=== PATIENT | male | born 1965 | race Caucasian/White ===

== ENCOUNTER 2025-02-16 18:50 | Emergency (ER) | payer OTHER, SELFPAY ==
[2025-02-16 18:52] VITALS: BP 163/115; PULSE 88; RESP 20; TEMP 36.7; O2SAT 98; BMI 23.3
--- NOTE | 2025-02-16 18:53 | ED_ITS ---
Discharge Plan Disposition Chief Complaint: Psychiatric Symptoms Referrals Follow up/Referrals: Provider,Referral, MD [Primary Care Provider] - See instructions Clinical Impressions Clinical Impression: Alcohol intoxication Qualifiers: Complication of substance-induced condition: uncomplicated Qualified Code(s): F 10.920 - Alcohol use, unspecified with intoxication, uncomplicated Stand Alone Forms Stand Alone Forms: Work/School Release Print Language Print Language: Malay Discharge ED Provider: Thaddeus Marmolejo General Adult HPI General Chief complaint: Psychiatric Symptoms Stated complaint: nervous breakdown Time Seen by Provider: 02/16/25 18:52 Mode of Arrival: EMS Source of Information: Patient and EMS Limitations: intoxicated History of Present Illness HPI narrative: This is a 59-year-old male with a past medical history of bipolar disorder not currently taking any medications who presents by EMS with multiple complaints. He was found outside of an apartment complex wandering on the street. Police were involved. Ultimately, patient progressed to having a nervous breakdown and EMS was called for transport to the emergency department. Reports that patient has been drinking alcohol today. Patient reports taking 5 shots in a 24 ounce of beer. States that he has had a lot going on in his life and a lot is coming to the surface right now. Denies any suicidal or homicidal ideation. States that he has a 9-year-old son that he has not been able to see. States that he needs help. Related Data Allergies Allergy/AdvReac Type Severity Reaction Status Date / Time No Known Allergies Allergy Verified 02/16/25 19:26 [facility] Disclaimer: The information contained in this section may have been updated after the patient was seen, as this information can be updated by other users. Social History Smoking Status: Never smoker alcohol intake: current current occupational status: unemployed Travel in the last 8 weeks?: None ROS Obtained: Yes All systems reviewed & no additional complaints except as documented Physical Exam General General appearance: alert and appears intoxicated Head Head exam: atraumatic Eye Eye exam: Present normal appearance, PERRL and EOMI Neck Neck exam: Present normal inspection and full ROM Chest Chest inspection: Present symmetric chest wall rise Respiratory Respiratory exam: Present normal lung sounds bilaterally; Absent respiratory distress Cardiovascular Cardiovascular exam: Present regular rate and normal rhythm Abdominal Exam Abdominal exam: Present soft; Absent distention Extremities Exam Extremities exam: Present other (RUE: Old healing laceration to the dorsum of his left hand) Neurological Exam Neurological exam: Present alert and oriented X3 Psychiatric Psychiatric exam: Present other (Labile affect. Tearful. Intoxicated.); Absent agitated, manic, homicidal ideation or suicidal ideation Skin Skin exam: Present warm and dry Medical Decision Making Medical Records Medical records reviewed: Yes I reviewed the patient's medical records. Screening: Per USPSTF and CDC recommendations, given the prevalence of disease in our region, it is our hospital?s policy to screen for HIV and viral Hepatitis for all patients aged 18 and over and those with ongoing risk factors. [place] Inquiry Pt receiving controlled substance: No Vital Signs: 02/16/25 18:52 02/16/25 20:45 02/16/25 21:23 Temperature 98.1 F Temperature Source Oral Pulse Rate 83 82 Pulse Rate [Right] 88 Respiratory Rate 20 Blood Pressure 126/86 131/80 Blood Pressure [Right Arm] 163/115 H Blood Pressure Mean [Right Arm] 131 02 Sat by Pulse Oximetry 98 97 96 Oxygen Delivery Method Room Air Room Air 02/16/25 21:24 Temperature Temperature Source Pulse Rate 84 Pulse Rate [Right] Respiratory Rate Blood Pressure 127/96 H Blood Pressure [Right Arm] Blood Pressure Mean [Right Arm] 02 Sat by Pulse Oximetry 96 Oxygen Delivery Method Lab Data Lab Results 02/16/25 20:56: WBC 6.4, RBC 4.74, Hgb 14.9, Hct 44.6, MCV 94.1 H, MCH 31.4 H, MCHC 33.4, RDW 13.8, Plt Count 249, MPV 9.0, Neut % (Auto) 50.7, Lymph % (Auto) 38.1, Frederick % (Auto) 8.4, Eos % (Auto) 1.6, Baso % (Auto) 0.9, Neut # (Auto) 3.2, Lymph # (Auto) 2.4, Frederick # (Auto) 0.5, Eos # (Auto) 0.1, Baso # (Auto) 0.1, Sodium 145, Potassium 3.1 L, Chloride 107, Carbon Dioxide 30, Anion Gap 11.1, BUN 10, Creatinine 0.70, Estimated Creat Clear 103, Estimated GFR 116, Est GFR ( Amer) 140, Glucose 113 H, Calcium 9.6, Total Bilirubin 0.4, AST 45, ALT 24, Alkaline Phosphatase 106, Total Protein 7.5, Albumin 4.7, Globulin 2.8, Albumin/Globulin Ratio 1.7, Plasma/Serum Alcohol 287 H 02/16/25 20:56 02/16/25 20:56 Orders (Tests/Meds): ED MEDICATIONS Discontinued Medications Generic Name Dose Route Start Last Admin Trade Name Ira PRN Reason Stop Dose Admin Clonazepam 1 mg 02/16/25 19:25 02/16/25 19:31 Clonazepam 0.5mg Tablet PO 02/16/25 19:26 1 mg ONCE ONE Administration Lactated Ringer's 1,000 mls @ 999 mls/hr 02/16/25 18:52 02/16/25 21:00 Lactated Ringer's 1000 Ml Bag IV 02/16/25 19:52 999 mls/hr .Q1H1M ONE Administration Potassium Chloride 40 meq 02/16/25 22:54 Potassium Chloride 20meq Tab PO 02/16/25 22:55 ONCE ONE ORDERS Category Date Time Status Blood alcohol [Ethyl Alcohol] Stat Lab 02/16/25 20:56 Completed CBC w/Auto Diff [Complete Blood Count Auto Diff] Stat Lab 02/16/25 20:56 Completed CMP [Comprehensive Metabolic Panel] Stat Lab 02/16/25 20:56 Completed Medical Decision Narrative: In summary, this 59-year-old male with a past medical history of bipolar disorder not currently on any medication presents to the emergency department today with multiple complaints including nervous breakdown and alcohol intoxication. On initial evaluation patient is afebrile, hemodynamically stable, nontoxic-appearing, clearly intoxicated. Differential diagnosis includes but is not limited to alcohol intoxication, anxiety, bipolar disorder. Based on these concerns, I ordered CBC, CMP, alcohol level. Ordered 1 L of lactated Ringer's for treatment. Patient declined laboratory workup and fluids. He got up out of his bed and tried to leave the emergency department several times. He was able to be redirected back to his room. Offered food, drink, socks. He was requesting his Klonopin which he used to take for his bipolar disorder in the past. He was felt to be a danger to himself and others at this time as he was still significantly intoxicated. Was redirectable at this time. Did administer the patient 1 mg of oral Klonopin. He was much more cooperative after this. Deferred laboratory workup and IV fluids at this time. Clinical presentation is consistent with alcohol intoxication. Patient needs time to metabolize and labs and fluids are not necessary. Patient became more cooperative after being administered Klonopin. IV was obtained and labs were sent. Unremarkable CBC, unremarkable CMP with the exception of mild hypokalemia at 3.1 which was repleted orally. Alcohol level of 287. At the time of shift change, patient was resting comfortably. Care was handed off to Dr. Yuen pending metabolization and reassessment. See dispo below. Critical Care Critical Care Time Critical Care Time: No
--- NOTE | 2025-02-16 19:24 | PC.NURSE ---
Patient refuses IV; states he is leaving; states his mom can't come and get him because she is [address]; notified
[2025-02-16] MEDS: clonazePAM 0.5MG TABLET 1 MG PO (19:31)
--- NOTE | 2025-02-16 19:38 | PC.NURSE ---
Pt is very intoxicated. He keeps trying to leave. Pt is refusing an IV at this time. This RN, Bria CRUZ, and Dr. Marmolejo have all tried speaking with him and explaining the situation. This RN called House and requested a sitter for a bit. At this time, a sitter is w/ him
[2025-02-16 20:45] VITALS: BP 126/86; PULSE 83; O2SAT 97
[2025-02-16 21:00] LABS: Basophils # 0.1 K/mm3 (0-0.2); Basophils % 0.9 % (0.1-2.0); Eosinophils # 0.1 Kmm3 (0.0-0.4); Eosinophils % 1.6 % (0.1-12.0); Hematocrit 44.6 % (42.0-52.0); Hemoglobin 14.9 g/dL (14.1-18.0); Lymphocytes # 2.4 K/mm3 (0.7-4.5); Lymphocytes % 38.1 % (10-50); Mean Corpuscular HGB Conc 33.4 g/dL (31.8-35.4); Mean Corpuscular Hemoglobin 31.4 pg (27.0-31.2); Mean Corpuscular Volume 94.1 fl (80-94); Monocytes # 0.5 K/mm3 (0.1-1.0); Monocytes % 8.4 % (1.7-9.3); Neutrophils # 3.2 K/mm3 (1.8-7.8); Neutrophils % 50.7 % (37.0-80.0); Nucleated Red Blood Cells # 0 10^3/uL; Nucleated Red Blood Cells % 0 %; Platelet Count 249 K/mm3 (142-424); Red Blood Count 4.74 M/mm3 (4.60-6.20); Red Cell Distribution Width 13.8 % (11.5-17.5); Red Cell Distribution Width-SD 47.9 fL; White Blood Count 6.4 K/mm3 (4.8-10.8)
[2025-02-16] MEDS: LACTATED RINGERS 1000ML 1,000 ML 999 ML IV (21:00)
[2025-02-16 21:07] LABS: Albumin Level 4.7 g/dl (3.5-5.0); Chloride 107 mmol/L (98-107); Potassium 3.1 mmoL/L (3.5-5.1); Sodium 145 mmol/L (136-145)
[2025-02-16 21:10] LABS: Alanine Aminotransferase 24 U/L (12-78); Albumin/Globulin Ratio 1.7 (1.1-1.8); Alkaline Phosphatase 106 U/L (38-126); Anion Gap 11.1 mEq/L (5-15); Aspartate Amino Transferase 45 U/L (17-59); Bilirubin,Total 0.4 mg/dl (0.2-1.3); Blood Urea Nitrogen 10 mg/dl (9-20); Carbon Dioxide 30 mmol/L (22.0-30.0); Creatinine Clearance Estimated 103 mL/min (50-200); Estimated Glomerular Filt Rate 116 ml/min (>60); GFR (African American) 140 ML/MIN (>60); Globulin 2.8 g/dL (1.3-3.2); Total Protein,Serum 7.5 g/dl (6.3-8.2)
[2025-02-16 21:11] LABS: Calcium 9.6 mg/dl (8.4-10.2); Glucose 113 mg/dl (74-100)
[2025-02-16 21:12] LABS: Ethyl Alcohol 287 mg/dl (0-10)
--- NOTE | 2025-02-16 21:19 | PC.NURSE ---
Patient refuses to wear monitoring equipment; risks explained.
[2025-02-16 21:23] VITALS: BP 131/80; PULSE 82; O2SAT 96
[2025-02-16 21:24] VITALS: BP 127/96; PULSE 84; O2SAT 96
[2025-02-16] MEDS: POTASSIUM CHLORIDE 20MEQ TAB 40 MEQ PO (23:24)
[2025-02-17 01:47] VITALS: BP 120/72; PULSE 74; RESP 16; TEMP 36.6; O2SAT 98
== END 2025-02-17 01:48 | disposition home or self-care (01) ==
PROVIDERS: Emergency Provider Student in an Organized Health Care Education/Training Program
DX: F10.920 Alcohol use, unspecified with intoxication, uncomplicated (principal); E87.6 Hypokalemia
CPT/HCPCS: 80053; 80320; 85025; 96360; 99285; J7120

== ENCOUNTER 2025-04-11 22:50 | Emergency (ER) | payer OTHER, SELFPAY ==
--- OUTSIDE RECORDS SUMMARY | 2017-10-03 08:30 | XMS_ITS | Continuity of Care Document ---
Author Organization [facility] Address [address] [place] [address] [place] [address] Phone Care Team Providers Care Shearer Helper Name Role Phone Provider, [facility] Unavailable Unavailable Advance Directives Directive Yes / No Effective Date File Name No Information Encounters Encounter Description Practice Location Reason(s) For Visit Diagnoses Date Provider Providers Copied on Encounter [facility], [address] [place], [place], [id number] tel:[phone] [facility] No Information Provider [facility]. [address] [place], [place], [id number]. tel:[phone] Family History Family Member Type Diagnosis Age At Onset No Information Payers Payer name Insurance type Covered republican ID Authoriza tion(s) No Information Social History Type Description Quantity Date Captured Comments Sex Male Smoking Status No Information History Of Present Illness Encounter Date Complaint History Of Prese nt Illness No Information Functional Status Date Functional Assessmen t No Information Instructions Date Instruction Additional Infor mation No Information Assessments Type Assessment Date No Information Patient Care Teams Name Effective Dates (start - stop) Status Members No Information
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
[2025-04-11 23:21] VITALS: BP 169/118; PULSE 93; RESP 16; TEMP 37.2; O2SAT 96; BMI 21.6
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
--- NOTE | 2025-04-11 23:21 | CT_ITS ---
PROCEDURE INFORMATION: Exam: CTA Abdomen and Pelvis With Contrast Exam date and time: 04/12/2025 12:29 AM Age: 59 years old Clinical indication: Injury or trauma; Additional info: Trauma, critical injury suspected TECHNIQUE: Imaging protocol: Computed tomographic angiography of the abdomen and pelvis with contrast. Exam focused on the arteries. 3D rendering (Not supervised by radiologist): MIP and/or 3D reconstructed images were created by the technologist. Radiation optimization: All CT scans at this facility use at least one of these dose optimization techniques: automated exposure control; mA and/or kV adjustment per patient size (includes targeted exams where dose is matched to clinical indication); or iterative reconstruction. Contrast material: ISOVUE; Contrast volume: 80 ml; Contrast route: INTRAVENOUS (IV); COMPARISON: CT LUMBAR SPINE WO CON 04/12/2025 12:16 AM FINDINGS: Aorta: Moderate atherosclerotic calcification throughout the abdominal aorta. No evidence of aneurysm, dissection or acute aortic injury. Celiac trunk and mesenteric arteries: No occlusion or significant stenosis. Renal arteries: No occlusion or significant stenosis. Right iliac arteries: No occlusion or significant stenosis. Left iliac arteries: No occlusion or significant stenosis. Liver: No mass. Gallbladder and biliary ducts: Unremarkable. No calcified stones. No ductal dilation. Pancreas: Unremarkable. No mass. No ductal dilation. Spleen: Unremarkable. No splenomegaly. Adrenal glands: Unremarkable. No mass. Kidneys and ureters: Unremarkable. No solid mass. No hydronephrosis. Stomach and bowel: Moderate diverticulosis throughout the distal colon and mild diverticulosis in the proximal colon. No bowel wall thickening or evidence of bowel obstruction. There is moderate wall thickening throughout the distal sigmoid colon raising suspicion 5 active or previously treated diverticulitis or colitis. Appendix: The appendix is visualized and appears normal. Intraperitoneal space: Unremarkable. No free air. No significant fluid collection. Lymph nodes: Unremarkable. No enlarged lymph nodes. Urinary bladder: Unremarkable. No mass. Reproductive: Coarse prostate gland calcifications are noted. Bones/joints: No acute fracture. Soft tissues: Unremarkable. IMPRESSION: 1. No acute posttraumatic changes evident. 2. Distal colonic diverticulosis with moderate wall thickening throughout the distal sigmoid suggesting either mild active or previously treated diverticulitis or colitis. No free air, free fluid or other findings to suggest acute bowel injury.
[2025-04-11] MEDS: LORazepam 2MG/ML VIAL 2 MG IV (23:33)
[2025-04-11] MEDS: LACTATED RINGERS 1000ML 1,000 ML 999 ML IV (23:33)
[2025-04-11] MEDS: TET/DIPHTH/PERT-ADULT 0.5ML SYRINGE 0.5 ML IM (23:33)
[2025-04-11 23:34] LABS: Basophils # 0.1 K/mm3 (0-0.2); Basophils % 0.8 % (0.1-2.0); Eosinophils # 0.1 Kmm3 (0.0-0.4); Eosinophils % 1.3 % (0.1-12.0); Hemoglobin 14.6 g/dL (14.1-18.0); Immature Granulocytes # 0.02 10^3uL; Immature Granulocytes % 0.2 %; Lymphocytes # 3.4 K/mm3 (0.7-4.5); Lymphocytes % 40.4 % (10-50); Mean Corpuscular HGB Conc 33.2 g/dL (31.8-35.4); Mean Corpuscular Hemoglobin 31.4 pg (27.0-31.2); Mean Corpuscular Volume 94.6 fl (80-94); Mean Platelet Volume 9.8 fl (7.4-10.4); Monocytes # 0.8 K/mm3 (0.1-1.0); Monocytes % 9.7 % (1.7-9.3); Neutrophils # 3.9 K/mm3 (1.8-7.8); Neutrophils % 47.6 % (37.0-80.0); Nucleated Red Blood Cells # 0 10^3/uL; Nucleated Red Blood Cells % 0 %; Platelet Count 233 K/mm3 (142-424); Red Blood Count 4.65 M/mm3 (4.60-6.20); Red Cell Distribution Width 13.2 % (11.5-17.5); Red Cell Distribution Width-SD 46.1 fL; White Blood Count 8.3 K/mm3 (4.8-10.8)
[2025-04-11 23:43] LABS: Alanine Aminotransferase 18 U/L (12-78); Albumin Level 4.5 g/dl (3.5-5.0); Albumin/Globulin Ratio 1.4 (1.1-1.8); Alkaline Phosphatase 83 U/L (38-126); Anion Gap 11.4 mEq/L (5-15); Aspartate Amino Transferase 43 U/L (17-59); Bilirubin,Total 0.6 mg/dl (0.2-1.3); Blood Urea Nitrogen 8 mg/dl (9-20); Calcium 9.5 mg/dl (8.4-10.2); Carbon Dioxide 28 mmol/L (22.0-30.0); Chloride 109 mmol/L (98-107); Estimated Glomerular Filt Rate 99 ml/min (>60); GFR (African American) 120 ML/MIN (>60); Globulin 3.3 g/dL (1.3-3.2); Glucose 113 mg/dl (74-100); Lipase 72 U/L (23-300); Potassium 3.4 mmoL/L (3.5-5.1); Sodium 145 mmol/L (136-145); Total Protein,Serum 7.8 g/dl (6.3-8.2)
[2025-04-11 23:45] LABS: Activated Partial Thrombo Time 28.9 seconds (22.8-30.6); INR 0.94 (0.9-1.1); Prothrombin Time 10.5 seconds (10.1-12.5)
--- NOTE | 2025-04-12 00:02 | PC.NURSE ---
pt taken to ct scan at this time
[2025-04-12] MEDS: IOPAMIDOL-370 (76%);100ML BOTTLE 160 ML IV (00:24)
[2025-04-12] MEDS: 0.9 % SODIUM CHLORIDE 50 ML VIAL IV (00:24)
--- NOTE | 2025-04-12 00:41 | PC.NURSE ---
pt returned from radiology without incident.
[2025-04-12 00:58] LABS: Microscopic, Urine URINE MICROSCOPIC (MICROSCOPIC)
[2025-04-12 01:01] VITALS: BP 109/58; PULSE 59; RESP 14; O2SAT 96
[2025-04-12 01:02] LABS: Appearance,Urine CLEAR (Clear); Bilirubin,Urine Negative (Negative); Blood, Urine Negative (Negative); Color,Urine YELLOW (Yellow); Glucose,Urine (UA) Negative (Negative); Ketones,Urine Negative (Negative); Leukocyte Esterase,Urine 1+ (Negative); Nitrate,Urine Negative (Negative); Protein,Urine Negative (Negative); Specific Gravity, Urine <= 1.005 (1.005-1.030); Urobilinogen,Urine 0.2 EU/dl (0.2)
[2025-04-12 01:21] LABS: Amphetamine/Metha Screen,Urine Negative ng/ml (<1000); Benzodiazepines Screen,Urine Negative ng/ml (<200)
[2025-04-12 01:22] LABS: Cannabinoid Screen,Urine Positive ng/ml (<50)
[2025-04-12 01:23] LABS: Cocaine Screen,Urine Negative ng/ml (<300); Methadone Screen,Urine Negative ng/ml (<300)
[2025-04-12 01:24] LABS: Opiate Screen,Urine Negative ng/ml (<300)
[2025-04-12 01:25] LABS: Phencyclidine Screen,Urine Negative ng/ml (<25)
[2025-04-12 01:29] LABS: Barbiturates Screen,Urine Negative ng/ml (<200)
[2025-04-12 01:30] VITALS: BP 106/65; PULSE 54; O2SAT 95
--- NOTE | 2025-04-12 01:53 | PC.NURSE ---
pt given food upon request.
[2025-04-12 02:02] VITALS: PULSE 71; O2SAT 100
[2025-04-12 02:17] LABS: Bacteria,Urine 4+ /lpf
[2025-04-12 03:11] LABS: HIV Combo NEGATIVE (Negative)
[2025-04-12 03:19] LABS: Hepatitis C Ab Qual. W/ RFX NEGATIVE (Negative)
--- NOTE | 2025-04-12 05:09 | PC.NURSE ---
pt awake and walking around room, speaking clearly. Made aware that we would be able to get him transportation back to [place] around 0800, breakfast tray to be ordered for patient, Placed back in bed and given warm blanket.
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
--- NOTE | 2025-04-12 08:26 | PC.NURSE ---
Called the [facility] for possible transport home, following MD BECKMAN.
--- NOTE | 2025-04-12 08:29 | PC.NURSE ---
spoke with Kylie for the [employer] transportation. stated they would be here about 1030 to pick him up
[2025-04-12 10:25] VITALS: BP 122/77; PULSE 96; RESP 15; TEMP 36.6; O2SAT 97
--- NOTE | 2025-04-14 13:34 | PC.NURSE ---
I attempted to call the pt about his urine results and that sent an antibiotic. His saved phone number on the chart belonged to someone else. They will give him a message to call back.
--- NOTE | 2025-04-14 14:19 | PC.NURSE ---
The pt returned my call. I relayed his prelim urine culture results. I informed him that sent him in an antibiotic to his pharmacy.
== END 2025-04-12 10:45 | disposition home or self-care (01) ==
PROVIDERS: Emergency Medicine; Emergency Provider Student in an Organized Health Care Education/Training Program
DX: S09.90XA Unspecified injury of head, initial encounter (principal); F10.129 Alcohol abuse with intoxication, unspecified; F17.210 Nicotine dependence, cigarettes, uncomplicated; V29.91XA Electric (assisted) bicycle rider (driver) (passenger) injured in unspecified traffic accident, initial encounter; Z23 Encounter for immunization
CPT/HCPCS: 70450; 70496; 70498; 71275; 72125; 72128; 72131; 74174; 80053; 80307; 81001; 83690; 85025; 85610; 85730; 86803; 87086; 87088; 87186; 87389; 90471; 90715; 96361; 96374; 99285; J2060; J7120; Q9967

== ENCOUNTER 2025-09-07 11:43 | Inpatient (IN) | payer OTHER, SELFPAY ==
[2025-09-07] VITALS (10 sets, daily range): BP systolic 109–158; BP diastolic 69–92; PULSE 90–111; RESP 14–17; TEMP 36.8–37.2; O2SAT 95–100; BMI 21.6; BMI 21.4
--- NOTE | 2025-09-07 12:05 | XR_ITS ---
FINAL REPORT TECHNIQUE: Single view chest CLINICAL HISTORY: trauma FINDINGS: A single view of the chest was obtained. The heart and mediastinum are within normal limits. The lungs are clear. There is no pneumothorax. IMPRESSION: No acute cardiopulmonary process. Reviewed, Interpreted and Dictated by Cristian Garcia MD Transcribed by Trina Landon Authenticated and [facility]
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
--- NOTE | 2025-09-07 12:05 | XR_ITS ---
FINAL REPORT CLINICAL HISTORY: trauma FINDINGS: SINGLE VIEW PELVIS: A single view of the pelvis was obtained. There is no acute fracture or dislocation. Vizualized joint spaces are normally aligned. Soft tissues are unremarkable. IMPRESSION: No acute bony abnormality. Reviewed, Interpreted and Dictated by Cristian Garcia MD Transcribed by Trina Landon Authenticated and [facility]
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
--- NOTE | 2025-09-07 12:11 | ECG_ITS ---
APPROVED REPORT Exam: Resting ECG HR:111 bpm ECG Measurements Heart Rate 111 AXES MT 144 P 74 QRSd 93 QRS 37 QT 321 T 71 QTc 386 Conclusion SINUS TACHYCARDIA ABNORMAL RHYTHM ECG UNCONFIRMED REPORT Electronically signed by : William Jameson, 09/07/2025 15:00:00
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
[2025-09-07 12:19] LABS: Hematocrit 33.3 % (42.0-52.0); Hemoglobin 12.0 g/dL (14.1-18.0); Immature Granulocytes % 1.1 %; Mean Corpuscular HGB Conc 36.0 g/dL (31.8-35.4); Mean Corpuscular Hemoglobin 31.3 pg (27.0-31.2); Mean Corpuscular Volume 86.9 fl (80-94); Nucleated Red Blood Cells % 0 %; Platelet Count 95 K/mm3 (142-424); Red Blood Count 3.83 M/mm3 (4.60-6.20); Red Cell Distribution Width-SD 36.8 fL; White Blood Count 12.3 K/mm3 (4.8-10.8)
[2025-09-07 12:33] LABS: Alanine Aminotransferase 34 U/L (12-78); Albumin Level 3.6 g/dl (3.5-5.0); Albumin/Globulin Ratio 1.4 (1.1-1.8); Alkaline Phosphatase 87 U/L (38-126); Anion Gap 10.1 mEq/L (5-15); Aspartate Amino Transferase 106 U/L (17-59); Bilirubin,Total 1.0 mg/dl (0.2-1.3); Blood Urea Nitrogen 18 mg/dl (9-20); Calcium 8.3 mg/dl (8.4-10.2); Carbon Dioxide 22 mmol/L (22.0-30.0); Chloride 87 mmol/L (98-107); Creatinine Clearance Estimated 48 mL/min (50-200); Creatinine,Serum 1.40 mg/dl (0.66-1.25); Estimated Glomerular Filt Rate 52 ml/min (>60); GFR (African American) 63 ML/MIN (>60); Globulin 2.6 g/dL (1.3-3.2); Glucose 103 mg/dl (74-100); Magnesium 1.9 mg/dl (1.6-2.3); Potassium 3.1 mmoL/L (3.5-5.1); Sodium 116 mmol/L (136-145); Total Protein,Serum 6.2 g/dl (6.3-8.2)
[2025-09-07] MEDS: LACTATED RINGERS 1000ML 1,000 ML 999 ML IV (12:42)
[2025-09-07] MEDS: diazePAM 10MG/2ML SYRINGE 2 MG IV (12:42)
[2025-09-07 12:45] LABS: Troponin I 0.01 ng/ml (0.00-0.034)
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
[2025-09-07 13:00] LABS: Total Cells Counted 100
[2025-09-07 13:01] LABS: RBC Morphology Normal
[2025-09-07] MEDS: POTASSIUM CHLORIDE 20MEQ TAB 40 MEQ PO (13:06)
--- NOTE | 2025-09-07 13:18 | PC.NURSE ---
repair department supervisor contacted for bed
[2025-09-07 13:22] LABS: Amphetamine/Metha Screen,Urine Negative ng/ml (<1000)
[2025-09-07 13:23] LABS: Barbiturates Screen,Urine Negative ng/ml (<200); Benzodiazepines Screen,Urine Positive ng/ml (<200)
[2025-09-07 13:25] LABS: Methadone Screen,Urine Negative ng/ml (<300)
[2025-09-07 13:26] LABS: Opiate Screen,Urine Negative ng/ml (<300); Phencyclidine Screen,Urine Negative ng/ml (<25)
--- NOTE | 2025-09-07 14:26 | HMH.PHAINT1 ---
Pharmacy Intervention Comments: MEDICATION RECONCILIATION COMPLETED ON PATIENT USING EXTERNAL FILL HISTORY FROM PHARMACY. -EVY GIVENS, ROSANNED
--- NOTE | 2025-09-07 15:00 | PC.NURSE ---
arrived by stretcher from ED
[2025-09-07 16:02] LABS: Anion Gap 7.9 mEq/L (5-15); Blood Urea Nitrogen 17 mg/dl (9-20); Calcium 8.3 mg/dl (8.4-10.2); Carbon Dioxide 24 mmol/L (22.0-30.0); Chloride 89 mmol/L (98-107); Creatinine Clearance Estimated 61 mL/min (50-200); Creatinine,Serum 1.10 mg/dl (0.66-1.25); Estimated Glomerular Filt Rate 69 ml/min (>60); GFR (African American) 83 ML/MIN (>60); Glucose 96 mg/dl (74-100); Sodium 118 mmol/L (136-145)
[2025-09-07 16:04] LABS: Potassium 2.9 mmoL/L (3.5-5.1)
[2025-09-07 16:14] LABS: Troponin I 0.03 ng/ml (0.00-0.034)
--- NOTE | 2025-09-07 17:28 | PC.NURSE ---
Hospitalist notified of critical potassium of 2.9 at 1608. no new orders at this time.
[2025-09-07 17:57] LABS: Sodium,Urine Random 19.0 mmol/L (30-90)
[2025-09-07] MEDS: 0.9 % SODIUM CHLORIDE 1000ML 1,000 ML 75 ML IV (18:17)
[2025-09-07 18:57] LABS: Troponin I 0.02 ng/ml (0.00-0.034)
[2025-09-07] MEDS: PANTOPRAZOLE 40MG TABLET 40 MG PO (20:30)
[2025-09-08] VITALS (7 sets, daily range): BP systolic 97–150; BP diastolic 70–95; PULSE 70–105; RESP 12–18; TEMP 36.3–39.1; O2SAT 95–100; BMI 21.2
[2025-09-08] MEDS: ACETAMINOPHEN 325MG TAB 650 MG PO (00:20)
[2025-09-08 00:41] LABS: Chloride 92 mmol/L (98-107); Potassium 3.8 mmoL/L (3.5-5.1); Sodium 124 mmol/L (136-145)
[2025-09-08 00:44] LABS: Anion Gap 13.8 mEq/L (5-15); Blood Urea Nitrogen 15 mg/dl (9-20); Calcium 7.9 mg/dl (8.4-10.2); Carbon Dioxide 22 mmol/L (22.0-30.0); Creatinine Clearance Estimated 61 mL/min (50-200); Creatinine,Serum 1.10 mg/dl (0.66-1.25); Estimated Glomerular Filt Rate 69 ml/min (>60); GFR (African American) 83 ML/MIN (>60); Glucose 83 mg/dl (74-100)
--- NOTE | 2025-09-08 01:41 | PC.NURSE ---
Pt AOx4. Tolerating room air. CIWA score 0. NPO per provider order. Denies pain or any additional needs. Resting in low, locked bed with call light is in reach. Respirations even and unlabored.
--- NOTE | 2025-09-08 06:00 | US_ITS ---
FINAL REPORT TECHNIQUE: Sonographic images of the right upper quadrant were obtained. CLINICAL HISTORY: RUQ tenderness, nausea/vomiting FINDINGS: PANCREAS: Unremarkable. LIVER: Homogeneous. No focal hepatic lesion. No intrahepatic biliary ductal dilatation. GALLBLADDER: No gallstones. No gallbladder wall thickening or pericholecystic fluid. COMMON DUCT: 7 mm. Dilated for age. RIGHT KIDNEY: The right kidney measures 11.2 cm. There is no hydronephrosis, mass, or stone. FREE FLUID: None. IMPRESSION: Mild common duct dilatation, otherwise unremarkable exam. Reviewed, Interpreted and Dictated by Mahi Cosme MD Transcribed by Trina Landon Authenticated and [facility]
[2025-09-08 06:16] LABS: Hematocrit 34.9 % (42.0-52.0); Hemoglobin 11.9 g/dL (14.1-18.0); Immature Granulocytes % 0.8 %; Mean Corpuscular HGB Conc 34.1 g/dL (31.8-35.4); Mean Corpuscular Hemoglobin 30.5 pg (27.0-31.2); Mean Corpuscular Volume 89.5 fl (80-94); Nucleated Red Blood Cells % 0 %; Platelet Count 103 K/mm3 (142-424); Red Blood Count 3.90 M/mm3 (4.60-6.20); Red Cell Distribution Width-SD 38.7 fL; White Blood Count 9.9 K/mm3 (4.8-10.8)
[2025-09-08 06:25] LABS: INR 0.94 (0.9-1.1); Prothrombin Time 10.5 seconds (10.1-12.5)
[2025-09-08 06:27] LABS: Alanine Aminotransferase 42 U/L (12-78); Albumin Level 3.3 g/dl (3.5-5.0); Albumin/Globulin Ratio 1.3 (1.1-1.8); Alkaline Phosphatase 71 U/L (38-126); Anion Gap 6.7 mEq/L (5-15); Aspartate Amino Transferase 194 U/L (17-59); Bilirubin,Total 0.7 mg/dl (0.2-1.3); Blood Urea Nitrogen 16 mg/dl (9-20); Calcium 8.6 mg/dl (8.4-10.2); Carbon Dioxide 27 mmol/L (22.0-30.0); Chloride 93 mmol/L (98-107); Creatinine Clearance Estimated 60 mL/min (50-200); Creatinine,Serum 1.10 mg/dl (0.66-1.25); Estimated Glomerular Filt Rate 69 ml/min (>60); GFR (African American) 83 ML/MIN (>60); Globulin 2.5 g/dL (1.3-3.2); Glucose 88 mg/dl (74-100); Magnesium 2.2 mg/dl (1.6-2.3); Potassium 3.7 mmoL/L (3.5-5.1); Sodium 123 mmol/L (136-145); Total Protein,Serum 5.8 g/dl (6.3-8.2)
[2025-09-08 06:54] LABS: Total Cells Counted 100
[2025-09-08 06:57] LABS: RBC Morphology Normal
--- NOTE | 2025-09-08 08:32 | SW/DCPLANNER ---
Addendum entered by Delfina Schmitz 09/08/25 10:29: Per PT/OT patient is safe to return home w/ home health services. Due to insurance not being in network w/ home health I will discuss outpatient PT services w/ patient. Original Note: I received a consult on this patient regarding possibly being homeless at time of discharge. Patient stated that he currently rents an apartment w/ his mother. Patient voiced that things are difficult w/ his mother in regards to splitting the rent and getting along. Patient stated that he has been actively searching for another apartment and has several applications in at places. Patient expressed that he does plan to return home w/ his mother due to it being his apartment. Patient and I did discuss homeless shelters if needed at time of discharge. Patient is not interested in homeless shelters at this time. I discussed w/ patient that Peer Support has been consulted and will speak w/ patient today. I will follow up w/ MD, patient and PS to assist w/ discharge planning. Patient will need a rolling walker at time of discharge and prefers to use [facility]. CM will continue to follow up.
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
[2025-09-08] MEDS: THIAMINE 100MG TABLET 100 MG PO (09:55)
[2025-09-08] MEDS: FOLIC ACID 1MG TABLET 1 MG PO (09:55)
--- NOTE | 2025-09-08 10:48 | MR_ITS ---
FINAL REPORT TECHNIQUE: Multiplanar multisequence imaging of the abdomen was obtained without contrast. MRCP images were obtained as well. CLINICAL HISTORY: Nausea/vomiting, RUQ pain, CBD dilatation on RUQ FINDINGS: The liver is homogeneous. There is no focal hepatic lesion. Gallbladder is present. There are no gallstones. Spleen is normal in size and signal intensity. Adrenal glands are unremarkable. There is no pancreatic mass or convincing evidence of pancreatitis. There are small bilateral renal cysts. There is no hydronephrosis. There is an abnormal appearance to the mid and lower pole of the right kidney. Kidney appears edematous with loss of corticomedullary differentiation. There is perinephric abnormal signal intensity on the right. Common duct is unremarkable. There is no filling defect or stricture. IMPRESSION: Abnormal appearance to the midportion and lower pole of the right kidney with edematous appearance and surrounding abnormal signal intensity which could represent infectious/inflammatory process. However, malignancy less likely but not excluded. Recommend correlation with contrast-enhanced CT (including delayed imaging) and correlation with urinalysis. Unremarkable appearance to the gallbladder and common duct. Reviewed, Interpreted and Dictated by Mahi Cosme MD Transcribed by Trina Landon Authenticated and [facility]
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
--- NOTE | 2025-09-08 11:41 | CARE MANAGER ---
Addendum entered by Amie Mason RN 09/10/25 09:32: Patient has improved greatly and will not require a walker. Original Note: Patient will Verbal consent given for any DME company. I plan to fax clinical and order on day of discharge to [facility] if he does not go to inpatient rehab.
[2025-09-08 13:27] LABS: Anion Gap 10.7 mEq/L (5-15); Blood Urea Nitrogen 17 mg/dl (9-20); Calcium 8.7 mg/dl (8.4-10.2); Carbon Dioxide 22 mmol/L (22.0-30.0); Chloride 92 mmol/L (98-107); Creatinine Clearance Estimated 66 mL/min (50-200); Creatinine,Serum 1.00 mg/dl (0.66-1.25); Estimated Glomerular Filt Rate 77 ml/min (>60); GFR (African American) 93 ML/MIN (>60); Glucose 80 mg/dl (74-100); Potassium 3.7 mmoL/L (3.5-5.1); Sodium 121 mmol/L (136-145)
[2025-09-08] MEDS: SODIUM CHLORIDE 1,000MG TABLET 1000 MG PO ×2 (15:32→20:32)
[2025-09-08 16:40] LABS: C-Reactive Protein 313.8 mg/L (0-4)
[2025-09-08] MEDS: NICOTINE 21MG/24HR PATCH 21 MG TD (16:40)
[2025-09-08] MEDS: MULTIVITAMIN TABLET 1 EACH PO (16:41)
[2025-09-08 16:51] LABS: Procalcitonin 10.1 ng/mL (0.0-2.0)
[2025-09-08 16:55] LABS: Adenovirus,PCR Not Detected (NotDetected); Chlamydophila Pneumoniae, PCR Not Detected (NotDetected); Coronavirus 19, PCR Not Detected (NotDetected); Coronovirus HKU1,PCR Not Detected (NotDetected); Influenza A, PCR Not Detected (NotDetected); Influenza AH1, 2009 Not Detected (NotDetected); Influenza AH1, PCR Not Detected (NotDetected); Influenza AH3,PCR Not Detected (NotDetected); Influenza B, PCR Not Detected (NotDetected); Mycoplasma Pneumoniae, PCR Not Detected (NotDetected); Parainfluenza 1, PCR Not Detected (NotDetected); Parainfluenza 2, PCR Not Detected (NotDetected); Parainfluenza 3, PCR Not Detected (NotDetected); Parainfluenza 4, PCR Not Detected (NotDetected)
[2025-09-08] MEDS: PIPERCILLIN/TAZO 3.375 GM in 0.9 % SODIUM CHLORIDE 50 ML IV ×2 (17:33→23:07)
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
--- NOTE | 2025-09-08 18:44 | CA_ITS ---
APPROVED REPORT EXAM: Comprehensive 2D, Doppler, and color-flow Echocardiogram Talent Acquisition Coordinator: Pinky Szymanski CRT Ht: 5 ft 5 in Wt: 129lbs BSA: 1.64 BP: 145/90 mmHg Indications: Hypertension/HDD, smoker, PTSD, BRIELLE, ALCOHOL WITHDRAWAL 2D Dimensions LA Volume 23.70 mL LA Volume Index 14.10 mL/m2 (M/F) 16-34 M-Mode Dimensions RVDd 3.34 cm (0.9-2.6) LA Diam 3.09 cm (1.9-4.0) LVDd 4.07 cm (3.5-5.7) LVDs 2.55 cm (3.5-5.7) IVSd 1.14 cm (0.6-1.1) PWd 1.09 cm (0.6-1.1) EF (Teich) 67.90% FS 37.30% EDV (Teich) 72.90 mL TAPSE 1.69 (<1.7) ESV (Teich) 23.40 mL LV Diastology E Decel Time 220 (160-240 msec) E/A Ratio 1.01 MED A' 13.00 cm/s LAT A' 12.60 cm/s Aortic Valve AO Peak GR. 6.20 mmHg Mitral Valve MV A Velocity 66.0 (40-130 cm/s) E/A Ratio 1.01 Pulmonary Valve PV Peak Velocity 103.0 (50-150 cm/s) Tricuspid Valve TR P. Velocity 227.00 cm/s RAP Estimate 10.00 mmHg RVSP 30.70 mmHg Left Ventricle The left ventricle is normal size. Left ventricular systolic function is normal. The left ventricular ejection fraction is within the normal range. There is increased left ventricular wall thickness. There is normal LV segmental wall motion. Transmitral Doppler flow pattern suggests impaired LV relaxation. LVEF is 55% Right Ventricle Right ventricle is mildly dilated. The right ventricular systolic function is normal. Atria Left atrium is mildly dilated. Right atrium is mildly dilated. There is no color Doppler evidence of interatrial shunt. Aortic Valve The aortic valve is mildly thickened. There is no hemodynamically significant aortic valvular stenosis. No aortic regurgitation is present. Mitral Valve The mitral valve is normal in structure. No evidence of mitral valve stenosis. Trace mitral regurgitation is present. Tricuspid Valve The tricuspid valve leaflets are thin and pliable. Trace tricuspid regurgitation. There is insufficient TR jet to estimate RVSP. Pulmonic Valve The pulmonary valve is grossly normal in structure. Trace pulmonic valve regurgitation is present. Great Vessels The aortic root is normal in size. IVC is normal in size and collapses >50% with inspiration. Pericardium There is no pericardial effusion. Other Information Study Quality: Fair Conclusion Normal biventricular systolic function. Mild RV dilation. Mild biatrial dilation. No significant valvular stenosis or regurgitation. Electronically signed by : She Bridges MD 09/08/2025 12:13:33
[2025-09-08] MEDS: PANTOPRAZOLE 40MG TABLET 40 MG PO (20:32)
[2025-09-09] VITALS (9 sets, daily range): BP systolic 121–153; BP diastolic 77–92; PULSE 86–110; RESP 16–20; TEMP 36.8–38.8; O2SAT 96–99; BMI 21.4
[2025-09-09] MEDS: PIPERCILLIN/TAZO 3.375 GM in 0.9 % SODIUM CHLORIDE 50 ML IV ×4 (04:49→22:17)
[2025-09-09 06:33] LABS: Hematocrit 29.2 % (42.0-52.0); Hemoglobin 10.1 g/dL (14.1-18.0); Immature Granulocytes % 1.8 %; Mean Corpuscular HGB Conc 34.6 g/dL (31.8-35.4); Mean Corpuscular Hemoglobin 30.1 pg (27.0-31.2); Mean Corpuscular Volume 87.2 fl (80-94); Nucleated Red Blood Cells % 0 %; Platelet Count 84 K/mm3 (142-424); Red Blood Count 3.35 M/mm3 (4.60-6.20); Red Cell Distribution Width-SD 37.8 fL; White Blood Count 10.4 K/mm3 (4.8-10.8)
[2025-09-09 06:36] LABS: Alanine Aminotransferase 47 U/L (12-78); Albumin Level 2.8 g/dl (3.5-5.0); Albumin/Globulin Ratio 1.2 (1.1-1.8); Alkaline Phosphatase 74 U/L (38-126); Anion Gap 6.6 mEq/L (5-15); Aspartate Amino Transferase 164 U/L (17-59); Bilirubin,Total 1.4 mg/dl (0.2-1.3); Blood Urea Nitrogen 13 mg/dl (9-20); Calcium 8.0 mg/dl (8.4-10.2); Carbon Dioxide 23 mmol/L (22.0-30.0); Chloride 90 mmol/L (98-107); Creatinine Clearance Estimated 66 mL/min (50-200); Creatinine,Serum 1.00 mg/dl (0.66-1.25); Estimated Glomerular Filt Rate 77 ml/min (>60); GFR (African American) 93 ML/MIN (>60); Globulin 2.4 g/dL (1.3-3.2); Glucose 125 mg/dl (74-100); Magnesium 1.6 mg/dl (1.6-2.3); Sodium 117 mmol/L (136-145); Total Protein,Serum 5.2 g/dl (6.3-8.2)
[2025-09-09 07:00] LABS: Potassium 2.6 mmoL/L (3.5-5.1)
--- NOTE | 2025-09-09 07:01 | PC.NURSE ---
Critical potassium of 2.[address] Uriostegui
[2025-09-09 07:10] LABS: C-Reactive Protein 272.0 mg/L (0-4)
[2025-09-09 07:21] LABS: Procalcitonin 7.80 ng/mL (0.0-2.0)
[2025-09-09] MEDS: POTASSIUM CHLORIDE 20MEQ TAB 40 MEQ PO ×3 (08:44→15:47)
[2025-09-09] MEDS: THIAMINE 100MG TABLET 100 MG PO (08:45)
[2025-09-09] MEDS: SODIUM CHLORIDE 1,000MG TABLET 1000 MG PO ×3 (08:45→20:44)
[2025-09-09] MEDS: 0.9 % SODIUM CHLORIDE 1000ML 500 ML 250 ML IV (08:45)
[2025-09-09] MEDS: MAGNESIUM SULFATE IN WATER 2 GM/50 ML PIGGYBACK IV ×2 (08:45→11:38)
[2025-09-09] MEDS: FOLIC ACID 1MG TABLET 1 MG PO (08:45)
[2025-09-09 08:48] LABS: RBC Morphology Normal; Total Cells Counted 100
[2025-09-09 11:45] LABS: Microscopic, Urine URINE MICROSCOPIC (MICROSCOPIC)
[2025-09-09 12:10] LABS: Bilirubin,Urine Negative (Negative); Color,Urine YELLOW (Yellow); Glucose,Urine (UA) Negative (Negative); Ketones,Urine Negative (Negative); Leukocyte Esterase,Urine 1+ (Negative); PH,Urine 5.5 (5.0-8.5); Protein,Urine 2+ (Negative); Specific Gravity, Urine 1.020 (1.005-1.030); Urobilinogen,Urine 1.0 EU/dl (0.2)
[2025-09-09 12:27] LABS: Bacteria,Urine Trace /lpf; RBC,Urine 20-50 #/hpf (0-3)
[2025-09-09] MEDS: NICOTINE 21MG/24HR PATCH 21 MG TD (14:01)
--- NOTE | 2025-09-09 15:26 | SW/DCPLANNER ---
Patient information has been faxed to [facility] at PS request.
[2025-09-09] MEDS: MULTIVITAMIN TABLET 1 EACH PO (15:47)
[2025-09-09 16:27] LABS: Chloride 92 mmol/L (98-107); Potassium 3.7 mmoL/L (3.5-5.1); Sodium 124 mmol/L (136-145)
[2025-09-09 16:30] LABS: Anion Gap 10.7 mEq/L (5-15); Blood Urea Nitrogen 11 mg/dl (9-20); Carbon Dioxide 25 mmol/L (22.0-30.0); Creatinine Clearance Estimated 74 mL/min (50-200); Creatinine,Serum 0.90 mg/dl (0.66-1.25); Estimated Glomerular Filt Rate 87 ml/min (>60); GFR (African American) 105 ML/MIN (>60)
[2025-09-09 16:31] LABS: Calcium 7.4 mg/dl (8.4-10.2); Glucose 113 mg/dl (74-100)
--- NOTE | 2025-09-09 16:48 | PC.NURSE ---
Aox 4, up ad petey, 20g R UA SL, on RA, consults to PT/OT PEER, AND CM, regular diet.
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
[2025-09-09] MEDS: PANTOPRAZOLE 40MG TABLET 40 MG PO (20:44)
[2025-09-09] MEDS: ACETAMINOPHEN 325MG TAB 650 MG PO (22:12)
[2025-09-09] MEDS: IPRATROPIUM/ALBUTEROL 3 ML NEB IH (23:10)
[2025-09-10] VITALS: BP 103/67; PULSE 75; PULSE 79; RESP 18; TEMP 36.4; O2SAT 93
[2025-09-10 04:00] VITALS: BP 106/69; PULSE 72; PULSE 75; RESP 18; TEMP 36.4; O2SAT 100; BMI 21.4
[2025-09-10] MEDS: PIPERCILLIN/TAZO 3.375 GM in 0.9 % SODIUM CHLORIDE 50 ML IV ×2 (05:34→10:22)
[2025-09-10 05:50] LABS: Hematocrit 28.6 % (42.0-52.0); Hemoglobin 9.9 g/dL (14.1-18.0); Immature Granulocytes % 5.3 %; Mean Corpuscular HGB Conc 34.6 g/dL (31.8-35.4); Mean Corpuscular Hemoglobin 30.3 pg (27.0-31.2); Mean Corpuscular Volume 87.5 fl (80-94); Nucleated Red Blood Cells % 0 %; Platelet Count 86 K/mm3 (142-424); Red Blood Count 3.27 M/mm3 (4.60-6.20); Red Cell Distribution Width-SD 38.2 fL; White Blood Count 10.3 K/mm3 (4.8-10.8)
[2025-09-10 05:57] LABS: Alanine Aminotransferase 54 U/L (12-78); Albumin Level 2.9 g/dl (3.5-5.0); Albumin/Globulin Ratio 1.2 (1.1-1.8); Alkaline Phosphatase 91 U/L (38-126); Anion Gap 6.0 mEq/L (5-15); Aspartate Amino Transferase 149 U/L (17-59); Bilirubin,Total 1.5 mg/dl (0.2-1.3); Blood Urea Nitrogen 12 mg/dl (9-20); Calcium 8.4 mg/dl (8.4-10.2); Carbon Dioxide 26 mmol/L (22.0-30.0); Chloride 97 mmol/L (98-107); Creatinine Clearance Estimated 83 mL/min (50-200); Creatinine,Serum 0.80 mg/dl (0.66-1.25); Estimated Glomerular Filt Rate 99 ml/min (>60); GFR (African American) 120 ML/MIN (>60); Globulin 2.4 g/dL (1.3-3.2); Glucose 112 mg/dl (74-100); Magnesium 2.2 mg/dl (1.6-2.3); Potassium 4.0 mmoL/L (3.5-5.1); Sodium 125 mmol/L (136-145); Total Protein,Serum 5.3 g/dl (6.3-8.2)
[2025-09-10 06:19] LABS: C-Reactive Protein 269.3 mg/L (0-4)
[2025-09-10 06:31] LABS: Procalcitonin 5.65 ng/mL (0.0-2.0)
[2025-09-10] MEDS: SODIUM CHLORIDE 1,000MG TABLET 1000 MG PO (07:40)
[2025-09-10] MEDS: FOLIC ACID 1MG TABLET 1 MG PO (07:40)
[2025-09-10] MEDS: THIAMINE 100MG TABLET 100 MG PO (07:40)
[2025-09-10 08:00] VITALS: BP 110/67; PULSE 85; PULSE 87; RESP 16; TEMP 36.7; O2SAT 99
--- NOTE | 2025-09-10 08:08 | SW/DCPLANNER ---
Addendum entered by Delfina Schmitz 09/10/25 12:42: Discharge summary has been faxed to [facility]. Addendum entered by Delfina Schmitz 09/10/25 11:55: I have arranged [facility] to transport patient home from [facility]. Peer Support will arrange transportation for [facility] from home to rehab. Original Note: Thaddeus donald/ [facility] has called this AM stating they can accept the patient if medically stable for discharge. I will follow up odilon/ az and and contact Thaddeus back regarding discharge. Thaddeus [phone]
[2025-09-10 08:19] LABS: RBC Morphology Normal; Total Cells Counted 100
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
[2025-09-13 23:15] LABS: Osmolality, Urine 460 mOsmol/kg (.)
--- NOTE | 2025-09-14 10:54 | SW/DCPLANNER ---
Phoned patient x2. Patient's phone is not accepting calls at this time. Marsha BISWAS [employer]
== END 2025-09-10 12:43 | disposition home or self-care (01) | DRG 640 ==
LOC: ER 12:56 → ICU 14:08 → 2ND 14:19
PROVIDERS: Admitting Provider Student in an Organized Health Care Education/Training Program; Emergency Provider Student in an Organized Health Care Education/Training Program; PCP Nurse Practitioner Family; Visit Provider Student in an Organized Health Care Education/Training Program
DX: E87.1 Hypo-osmolality and hyponatremia (principal); A41.9 Sepsis, unspecified organism; N17.9 Acute kidney failure, unspecified; Z59.00 Homelessness unspecified; N12 Tubulo-interstitial nephritis, not specified as acute or chronic; F31.9 Bipolar disorder, unspecified; D69.6 Thrombocytopenia, unspecified; K70.30 Alcoholic cirrhosis of liver without ascites; E87.6 Hypokalemia; F41.9 Anxiety disorder, unspecified; F17.210 Nicotine dependence, cigarettes, uncomplicated; S70.212A Abrasion, left hip, initial encounter; S90.512A Abrasion, left ankle, initial encounter; R07.9 Chest pain, unspecified; V27.01XA Electric (assisted) bicycle driver injured in collision with fixed or stationary object in nontraffic accident, initial encounter; Y90.0 Blood alcohol level of less than 20 mg/100 ml; Y92.488 Other paved roadways as the place of occurrence of the external cause; Z79.899 Other long term (current) drug therapy; F10.10 Alcohol abuse, uncomplicated
CPT/HCPCS: 0223U; 36415; 70450; 71045; 72125; 72170; 74181; 76376; 76705; 80048; 80053; 80307; 80320; 81001; 83735; 83930; 83935; 84145; 84484; 84540; 85007; 85025; 85610; 86140; 87040; 87070; 87086; 87205; 89220; 93005; 93306; 94640; 97162; 97166; 97530; 99285; J1650; J2543; J3360; J3475; J3480; J7030; J7120